=== PATIENT | female | born 1995 | race Hispanic/Latino ===

== ENCOUNTER 2021-12-25 11:08 | Emergency (ER) | payer MEDICAID, OTHER ==
[~2021-12-25] VITALS: Ht 162.6 cm; Wt 123.4 kg
[2021-12-25 11:11] VITALS: BP 162/98
[2021-12-25] MEDS ORDERED: IBUPROFEN 800 MG TAB PO ONE (13:30)
[2021-12-25] MEDS ORDERED: IBUP-2070 PO (13:32)
== END 2021-12-25 13:42 | disposition home or self-care (01) ==
LOC: EDH 11:08
DX: S60.221A Contusion of right hand, initial encounter (principal); R03.0 Elevated blood-pressure reading, without diagnosis of hypertension; E66.9 Obesity, unspecified; Z68.42 Body mass index [BMI] 45.0-49.9, adult; W23.0XXA Caught, crushed, jammed, or pinched between moving objects, initial encounter; Y93.89 Activity, other specified; Y92.512 Supermarket, store or market as the place of occurrence of the external cause; Y99.8 Other external cause status
CPT/HCPCS: 73130

== ENCOUNTER 2022-02-24 10:24 | Emergency (ER) | payer OTHER ==
[~2022-02-24] VITALS: Ht 162.6 cm; Wt 124.7 kg
[~2022-02-24 10:24] MED LIST: IBUP-2070 PO
[2022-02-24] MEDS ORDERED: IBUP-1493 PO (11:28)
[2022-02-24 11:46] VITALS: BP 136/74
== END 2022-02-24 11:58 | disposition home or self-care (01) ==
LOC: EDH 10:24
DX: S96.912A Strain of unspecified muscle and tendon at ankle and foot level, left foot, initial encounter (principal); Z79.1 Long term (current) use of non-steroidal anti-inflammatories (NSAID); X50.1XXA Overexertion from prolonged static or awkward postures, initial encounter; Y93.89 Activity, other specified; Y92.89 Other specified places as the place of occurrence of the external cause; Y99.8 Other external cause status
CPT/HCPCS: 29515; 73610